=== PATIENT | female | born 1985 | race Caucasian/White ===

== ENCOUNTER 2020-01-24 10:20 | Inpatient (IN) | payer MEDICARE, OTHER ==
[2020-01-20 11:59] LABS: BASOPHILS # (AUTO) 0.1 (0.0-0.1); BASOPHILS % 1.4 % (0.0-1.0); EOSINOPHILS # (AUTO) 0.1 (0.0-0.4); EOSINOPHILS % 1.6 % (0.0-6.0); HEMATOCRIT 46.4 % (34.2-44.1); HEMOGLOBIN 14.6 g/dL (12.0-16.0); LYMPHOCYTES # (AUTO) 2.4 (1.0-3.2); LYMPHOCYTES % 48.5 % (18.0-39.1); MEAN CORPUSCULAR HEMOGLOBIN 28.6 pg (28-32); MEAN CORPUSCULAR HGB CONC 31.5 g/dL (31-35); MEAN CORPUSCULAR VOLUME 90.8 fL (81-99); MONOCYTES # (AUTO) 0.3 (0.2-0.8); MONOCYTES % 6.7 % (4.4-11.3); NEUTROPHILS % 41.6 % (38.7-80.0); PLATELET COUNT 186 x10e3/uL (140-360); RED BLOOD COUNT 5.11 x10e6/uL (3.6-5.1); RED CELL DISTRIBUTION WIDTH 14.1 % (11.7-14.4)
[2020-01-20 12:19] LABS: INR 1.12; PARTIAL THROMBOPLASTIN TIME 29.2 seconds (23.8-35.5)
[2020-01-20 12:22] LABS: ANION GAP 15.9 mmol/L (8-16); BLOOD UREA NITROGEN 8 mg/dL (7-26); BUN/CREATININE RATIO 11 (6-25); CALCIUM 8.9 mg/dL (8.4-10.2); CARBON DIOXIDE 24 mmol/L (22-29); CHLORIDE 109 mmol/L (98-107); CREATININE, SERUM 0.73 mg/dL (0.57-1.11); EST GLOMERULAR FILTRATION RATE > 60 ML/MIN (60-); GLUCOSE 139 mg/dL (74-118); POTASSIUM 4.9 mmol/L (3.5-5.1); SODIUM 144 mmol/L (136-145)
[~2020-01-24] VITALS: Ht 152.4 cm; Wt 43.5 kg
[~2020-01-24 10:20] MED LIST: CARBAMAZEP200 MG/10 PO; CARBAMAZEPINE200 MG PO; LORATADINE10 MG PO; METFORMIN HCL500 MG PO; POLYETHYLENE GL17 GM PO
[2020-01-24] MEDS ORDERED: CEFAZOLIN SOD 1 GM/NS 50ML 50 ML IV ONE (10:50)
[2020-01-24] MEDS ORDERED: IOPAMIDOL 300MG/ML 50ML INFUS..BTL IV ONE (11:47)
[2020-01-24] MEDS ORDERED: SEVOFLURANE INHAL SOLN 250 ML PEN BTL ONE (12:19)
[2020-01-24] MEDS ORDERED: NEOSTIGMINE 1 MG/ML 10ML VIAL ONE (12:19)
[2020-01-24] MEDS ORDERED: ROCURONIUM BROMIDE 10 MG/ML 5ML VIAL IV ONE (12:19)
[2020-01-24] MEDS ORDERED: DEXAMETHASONE SOD PHOS INJ 4 MG/ML VIAL ONE (12:19)
[2020-01-24] MEDS ORDERED: LIDOCAINE HCL 2% LOCAL INJ 5 ML SDV VIAL INJ ONE (12:19)
[2020-01-24] MEDS ORDERED: PROPOFOL IV EMULSION 10 MG/ML 20 ML VIAL ONE (12:19)
[2020-01-24] MEDS ORDERED: ONDANSETRON HCL INJ 2MG/ML 2ML 2 MG/ML VIAL ONE (12:19)
[2020-01-24] MEDS ORDERED: GLYCOPYRROLATE INJ 0.2 MG/ML VIAL ONE (12:19)
[2020-01-24] MEDS ORDERED: FENTANYL CITRATE/PF 100MCG/2 ML INJ ONE ×2 (12:48→16:17)
[2020-01-24] MEDS ORDERED: MIDAZOLAM HCL 2 MG/2 ML VIAL ONE (12:48)
[2020-01-24] MEDS ORDERED: DIPHENHYDRAMINE HCL 25 MG CAP PO PRN (15:45)
[2020-01-24] MEDS ORDERED: NALOXONE HCL INJ 0.4 MG/ML AMP IV PRN (15:45)
[2020-01-24] MEDS ORDERED: MORPHINE SULFATE 1 MG/ML 30ML PCA IV PRN (15:45)
[2020-01-24] MEDS ORDERED: D5.45%NS/KCL 20MEQ 1,000 ML IV SCH (15:45)
[2020-01-24] MEDS ORDERED: ONDANSETRON HCL INJ 2MG/ML 2ML 2 MG/ML VIAL IV PRN (15:45)
[2020-01-24] MEDS: SODIUM CHLORIDE 0.9% 250ML IRRIG IR SCH ×3 (15:45→23:28)
--- NOTE | 2020-01-24 16:15 | Diagnostic Imaging Report ---
TECHNIQUE: Frontal view of the chest. INDICATION: ^R/O PTX ^[id number] ^[id number] COMPARISON: None DISCUSSION: Limited evaluation due to portable technique. Lines and hardware: Overlying EKG leads are noted. Enteric tube is seen coiled multiple times within the region of the distal esophagus. Heart and mediastinum: Within normal limits. Lungs and pleura: Negative for large pneumothorax. Negative for focal consolidation or large effusion. Soft tissues and bones: Diffuse gaseous distention of the bowel loops is noted. IMPRESSION: 1. Negative for pneumothorax. 2. Enteric tube is seen coiling multiple times within the distal esophagus, recommend repositioning and re-imaging. 3. Diffuse gaseous distention of the small bowel loops which could relate obstruction or ileus. Question trace pneumoperitoneum at the left upper quadrant. This may be normal in the postoperative state. Correlate with patient history. Signed by: Bartolome Kenney MD on 01/24/2020 4:11 PM
--- OUTSIDE RECORDS SUMMARY | 2020-01-24 16:15 | XMS REPORT | Continuity of Care Document ---
Author Author [facility] t Organization [facility] Address [address] [place] [address] Phone Unavailable Care Team Providers Care Bargeman Name Role Phone Asked, Pcp No PCP Unavailable Doctor Unassigned, Name No Attphys Unavailable Karly ALVARADO, [facility] Attphys Payers Payer Name Policy Type Policy Number Effective Date Expiration Date S ource Problems Condition Name Condition Details Condition Category Status Onset Date Resolution Date Last Treatment Date Treating Clinician Comments Source Hydronephrosis with ureteropelvic junction (UPJ) obstr uction Hydronephrosis with ureteropelvic junction (UPJ) obstruction Disease Active 2016-03-21 00:00: 00 Greg Reeves Kidney stones Kidney stones Disease Active 2016-02-01 00:00:00 Greg Reeves Allergies, Adverse Reactions, Alerts Allergy Name Allergy Type Status Severity Reaction(s) Onset Date Inacti ve Date Treating Clinician Comments Source levofloxacin DA Active U 2019-04-21 00:00:00 [facility] bishop paiute FA Active U 2019-04-21 00:00:00 [facility] strawberry FA Active PR 2019-04-21 00:00:00 [facility] levofloxacin DA Active U 2017-07-30 00:00:00 [facility] bishop paiute DA Active U 2017-02-04 00:00:00 [facility] strawberry DA Active PR 2017-02-04 00:00:00 [facility] strawberry FA Active PR 2017-02-04 00:00:00 [facility] bishop paiute FA Active U 2017-02-04 00:00:00 [facility] Family History Family Member Diagnosis Comments Start Date Stop Date Source Natural mother Cancer [facility] Social History Social Habit Start Date Stop Date Quantity Comments Source Sex Assigned At Syd me[facility] [place] Alcohol intake 2016-03-25 00:00:00 2016-03-25 00:00:00 Current non-drinker of alcohol (finding) Greg Reeves Smoking Status Start Date Stop Date Source Never smoker Greg Funes t Medications Ordered Medication Name Filled Medication Name Start Date Stop Da te Current Medication? Ordering Clinician Indication Dosage Frequency Signature (SIG) Comments Components Source ciprofloxacin HCl (CILOXAN) 0.3 % ophthalmic solution 2016-03-21 11:31:46 Yes i-ii gtt bilat eyes qid x 10 days Greg Reeves metFORMIN (GLUCOPHAGE) 500 MG tablet 2016-03-21 11:31:46 Ye s 250mg QD Take 250 mg by mouth daily with breakfast. Greg Reeves esomeprazole (NexIUM) 40 MG capsule 2016-03-21 11:31:46 Yes 40mg QD Take 40 mg by mouth daily before breakfast. H phoebe Reeves LORAZepam (ATIVAN) 1 MG tablet 2016-03-21 11:31:46 Yes 1mg Q6H Take 1 mg by mouth every 6 (six) hours as needed for anxiety. Greg Reeves LANSOPRAZOLE (PREVACID ORAL) 2016-03-21 11:31:46 Yes None Entered Greg Reeves polyethylene glycol (MIRALAX) 17 gram packet 2008-07-05 00:00:00 Yes MIX 1 TABLESPOONFUL IN 8OZ OF FLUID AND GIVE VIA G-TUBE DAILY Greg Reeves ketoconazole (NIZORAL) 2 % shampoo 2008-06-30 00:00:00 Yes APPLY TO SCALP AND HAIR AND RINSE TWICE PER WEEK Greg Reeves carBAMazepine (TEGretol) 100 mg chewable tablet 2008-04-22 00:00 :00 Yes take 1 and 1/2 tablet orally three times daily Greg Reeves Procedures This patient has no known procedures. Plan of Care Planned Activity Planned Date Details Comments Source Future Scheduled Test 2019-11-06 00:00:00 INFLUENZA VACCINE [code = INFLUENZA VACCINE] Greg Reeves Future Scheduled Test 2005 00:00:00 Screening for luli gnant neoplasm of cervix (procedure) [code = 279734821] Greg Funes t Encounters Start Date/Time End Date/Time Encounter Type Admission Type Attendi [facility] Care Department Encounter ID Source 2019-10-15 00:00:00 2019-10-15 00:00:00 Orders Only D dorothyor Unassigned, [place] [id number] 2019-10-11 11:10:34 2019-10-11 11:40:34 [facility] [id number] Results Test Description Test Time Test Comments Results Result Comments Source - NM KIDNEY SCAN W/FLOW 2019-09-01 11:21:00 [place]: B St: REG -- Name: SHO CAMPO [facility] : 1985 Age/S: 33/F [address] Unit #: [id number] Loc: [place] [address] Phys: Undefined Provider Acct: [id number] Dis Date: Status: REG CLI PHONE #: [phone] Exam Date: 09/01/2019 1015 FAX #: [phone] Reason: HYDRONEPHROSIS EXAMS: CPT CODE: [id number] NM KIDNEY SCAN W/FLOW 94168 EXAMINATION: NM KIDNEY SCAN FLOW, FUNCTION HISTORY: Hydronephrosis TECHNIQUE: After the intravenous injection of 10.2 mCi of technetium 99m DTPA, scintigraphic imaging was acquired of the kidneys in the posterior projection. Imaging was acquired for 30 minutes and time/activity curves were generated for both kidneys. FINDINGS: Dynamic blood flow images demonstrate delayed perfusion of the right kidney. There is also decreased radiopharmaceutical uptake in the right kidney compared to the left. Estimated time to peak activity for the left and right kidney is 2.5 and 29.5 minutes, respectively (normal 3-5 minutes). Estimated differential uptake for the left and right kidney is 69 % and 31 %, respectively. No excretion of tracer by the right kidney is observed suggesting nonfunctioning kidney. IMPRESSION: Redemonstration of nonfunctioning right kidney. Left renal function appears to be within normal limits with a normal time to peak seen on this exam. Location: [facility] at 1121 Reported and signed by: Justice Griggs MD CC: Technologist: Sindhu Eli RT(N) Trnscrd Date/Time/By: 09/01/2019 (1121) : By: [email or web address] Orig Print D/T: S: 09/01/2019 (6690) PAGE 1 Signed Report - NM KIDNEY FLW [facility] 2019-07-26 11:15:00 FAX : Amos Harding MD [phone] [place]: B St: REG -- Name: SHO CAMPO [facility] : 1985 Age/S: 33/F [address] [facility] Unit #: [id number] Loc: AJ [place] [address] Phys: Amos Saavedra MD Acct: [id number] Dis Date: Status: REG CLI PHONE #: [phone] Exam Date: 07/26/2019 1053 FAX #: [phone] Reason: N13.30 EXAMS: CPT CODE: [id number] [facility] [address] HISTORY: N1.30. COMPARISON: March 29, 2019 and May 28, 2017. Location: [facility]. Renal Lasix scan: 5.7 mCi of technetium 99m MAG3 and 20 mCi of Lasix administered at 20 minutes. Right side: Suboptimal delayed upstroke on the time activity curves. Time to peak is markedly delayed at 33.5 minutes. Percentage uptake of 25%. The static images also demonstrate minimal uptake. Left side: Delayed upstroke appears worse from previous exams with time to peak at 25 minutes which is markedly delayed as well. Percentage perfusion of 75%. Following Lasix no excretion noted on the right side. Slight excretion is noted on the left side suggesting functioning kidney albeit suboptimal function. IMPRESSION: No excretion on the right suggesting nonfunctioning kidney. Decreasing uptake on the left side when compared to previous exams although excretion is noted suggesting renal function. Correlate with lab values. at 1115 Reported and signed by: Frank Morton M.D. CC: Amos Saavedra MD Technologist: NICHOLAS DANIELS Trnscrd Date/Time/By: 07/26/2019 (1115) : By: [email or web address] Orig Print D/T: S: 07/26/2019 (2252) PAGE 1 Signed Report BASIC METABOLIC PANEL 2019-04-28 09:24:00 Test Item SODIUM (test code = NA) 140 mmol/L 136-145 N POTASSIUM (test code = K) 4.2 mmol/L 3.5-5.1 N CHLORIDE (test code = CL) 110.0 mmol/L 98-107 H CARBON DIOXIDE (test code = CO2) 23.0 mmol/L 21-32 N ANION GAP (test code = GAP) 11.2 10-20 N GLUCOSE (test code = GLU) 100 mg/dL 74-106 N BLOOD UREA NITROGEN (test code = BUN) 11 mg/dL 7-18 N GLOMERULAR FILTRATION RATE (test code = GFR) > 60 mL/min >=60 Estimated GFR by using Modified MDRD formula.Chronic kidney disease is defined as either kidney damageor GFR <60 mL/min/1.73 m2 for >3 months. CREATININE (test code = CREAT) 0.60 mg/dL 0.55-1.02 N Note change in reference range due to change in reagent. BUN/CREATININE RATIO (test code = BUN/CREA) 18.3 10-20 N CALCIUM (test code = CA) 8.5 mg/dL 8.5-10.1 N HCG SERUM [id number] 09:21:00* Test Item Value Reference Range Interpretation Comments HCG SERUM QUAL (test code = HCGQL) NEGATIVE NEGATIVE This HCGQL test is NOT applicable for MALE patients.Check with nurse about probable order error.If Tumor Marker Test needed, nurse should order test "HCGTU"(Test #550.56776) [id number] 08:55:00* Test Item Value Reference Range Interpretation Comments GLUBED (test code = GLUBED) 95 mg/dL 74-106 N Performed by certified roll up machine operator at [facility] - NM KIDNEY SCAN [id number] 14:21:00 FAX: Amos Harding MD [phone] [place]: B St: REG Name: Jose HUERTASHO [facility] : [birth year] Age/S: 33/F [address] [facility] Unit #: [id number] Loc: [place] [address] Phys: Amos Saavedra MD Acct: [id number] Dis Date: Status: REG CLI PHONE #: [phone] Exam Date: 03/29/2019 1020 FAX #: [phone] Reason: N13.30 EXAMS: CPT CODE: [id number] NM KIDNEY SCAN W/FLOW 99456 EXAMINATION: NM KIDNEY SCAN FLOW, FUNCTION HISTORY: Hydronephrosis TECHNIQUE: After th e intravenous injection of 10.3 mCi of technetium 99m MAG3, scintigraphic imaging was acquired of the kidneys in the posterior projection. Imaging w as acquired for 30 minutes and time/activity curves were generated for bot h kidneys. FINDINGS: Dynamic blood flow images dem onstrate asymmetric renal parenchymal perfusion with decreased perfusion t o the left kidney relative to the right. There is also decreased tracer up take in the left kidney relative to the right. Estimated time to peak acti vity for the left and right kidney is 4.5 and 18.5 minutes, respectively ( normal 3-5 minutes). Estimated differential uptake for the left and right kidney is 72 % and 28 %, respectively. There is also delaye d excretion of tracer from the right kidney relative to the left. Estimate d T-1/2 for the left and right kidney is 6.5 and 28.1 minutes, respectivel y (normal 8-12 minutes). IMPRESSION: Significantly decreased tracer uptake and excretion by the right kidney compared to the left is unchanged from the prior exam suggesting minimal function of the right kidney. Left kidney function is within normal charles its. Location: [facility] at 1421 Reported and signed by: Jose Griggs MD CC: Amos Saavedra MD Technologist: Sindhu Eli RT(N) Trnscrd Da te/Time/By: 03/29/2019 (142) : By: [email or web address] Orig Print D/T: S: 03/29 (4174) PAGE 1 Signed Report - RETROPERITONEAL [id number] 09:45:00 Name: SHO CAMPO [facility] : 1985 Age/S: 33 / F [address] Unit #: [id number] Loc: AJ [place] [address] Phys: Edenilson Saavedra MD Acct: [id number] Di s Date: Status: REG CLI PHONE #: Exam Date: 03/29/2019924 FAX #: Reason: N13.30 EXAMS: CPT CODE: [id number] US RETROPERIT [place] COM [id number] REASON FOR EXAM: N13.30 EXAM ORDER DATE: 03/29/2019 9:02 AM Attending M.D.: Amos Saavedra MD PROCEDURE: - US RETROPERITONEAL COM Comparison: Renal ultrasound January 31, [address] of the abdomen and pelvis January 30, 2017. Renal function nuclear scan November 17, 2018 was also evaluated FINDINGS: Right kidney: parenchyma echogenicity: Normal echogenicity size: 13.2 x 6.3 x 3.2 cm. stones: none cysts/masses: Simple cortical cysts in the upper pole measuring 1.8 cm in size appears slightly smaller from the previous exam w here it measured up to 2.3 cm in size hydronephrosis: Severe, simila r to prior exam Left kidney: parenchyma echogenicity: Norm al echogenicity size: 12.3 x 6.2 x 4.1 cm. stones: none cysts /masses: none hydronephrosis: Mild pelviectasis is seen Uri nary Bladder: Suboptimal evaluation due to underdistention IMPRE SSION: Severe right-sided hydronephrosis. This is unchanged f rom the prior examination. Mild left-sided pelviectasis. Due to shadowing, the left renal pelvis was unable to be evaluated on the prior exam however this finding was present on the prior CT scan. Location: [facility] PAGE 1 Signed Report (CONTINUED) Name: SHO CAMPO [facility] : 1985 Age/S: 33 / F [address] [facility] Unit #: [id number] Loc: AJ [place] [address] Phys: Amos Saavedra MD Acct: [id number] Dis Date: Status: REG CLI PHONE #: [phone] Exam Date: 03/29/2019924 FAX #: [phone] Reason: N13.30 EXAMS: CPT CODE: [id number] US RETROPERITONEAL COM [id number] < Continued> at 0945 Reported and signed by: Justice Griggs MD CC: Amos Saavedra MD Technologist: OLU KNOXR),KELLY Trnscb Date/Time: 03/29/2019 (0945) [email or web address] Orig Print D/T: S: 03/29/2019 (6663) Probe: PAGE 2 Signed Report - NM KIDNEY FLW [facility] [id number] 11:38:00 FAX: Amos Harding MD [phone] [place]: B St: REG Name: Jose HUERTASHO [facility] : [birth year] Age/S: 32/F [address] [facility] Unit #: [id number] Loc: [place] [address] Phys: Amos Saavedra MD Acct: [id number] Dis Date: Status: REG CLI PHONE #: [phone] Exam Date: 11/17/2018 1010 FAX #: [phone] Reason: N13.30 EXAMS: CPT CODE: [id number] NM KIDNEY FLW [facility] [address] RENAL SCINTIGRAPHY DATE OF STUDY: 11/17/2018 8:51 AM INDICATION: Hydronephrosis PROCEDURE: The patient received 10.2 mCi of Tc-99m MAG3 intravenously. Posterior projection radionuclide angiogram, function, and excretion phases were imaged. Computer analysis in the region of the kid neys was performed and a time/activity curve was generated. Patient also r eceived 40 MG of Lasix after 20 minutes. COMPARED WITH: Nuclear edicine renal scan history 26/04/2017 FINDINGS: Left kidney: There is homogenous uptake in the left kidney. Time to peak measured 4.48 minutes. Percent uptake measured 73.2%. There is normal excre tion of tracer from the left kidney. Right kidney: There is significantly decreased tracer uptake compared to the left kidney. This fi nding is also present on the prior exam. Time to peak measured 18.5 minute s. Percent uptake measured 26.9%. Minimal excretion of tracer was se en following administration of Lasix. IMPRESSION: Significantly decreased tracer uptake in the right kidney compared to the left. This was also seen on the prior exam. Minimal tracer e xcretion following the administration of Lasix. These findings suggest m inimal function of the right kidney and is unchanged from the prior exam . Left kidney function is within normal limits. E lectronically Signed by Justice Griggs MD on 11/17/2018 at 1131 Reported and signed by: Justice Griggs MD PAGE 1 Signed Report (CONTINUED) FAX: Amos Harding MD [phone] [place]: St: REG Name: SHO CAMPO [facility] : 1985 Age/S: 32/F [address] [facility] Unit #: [id number] Loc: [place] [address] Phys: Amos Saavedra MD Acct: [id number] Dis Date: Status: REG CLI PHONE #: [phone] Exam Date: 11/17/2018 FAX #: [phone] Reason: N13.30 EXAMS: CPT CODE: [id number] NM KIDNEY FLW [facility] [address] <Continued> CC: Amos Saavedra MD Technologist: NICHOLAS DANIELS Trnscrd Date/Time/By: 11/17/2018 (2381) : By: [email or web address] Orig Print D/T: S: 11/17/2018 (2488) PAGE 2 Signed Report BASIC METABOLIC PANEL 2018-08-06 10:19:00* Test Item Value Reference Range Interpretation Comments SODIUM (test code = NA) 142 mmol/L 136-145 N POTASSIUM (test code = K) 4.1 mmol/L 3.5-5.1 N CHLORIDE (test code = CL) 108.0 mmol/L 98-107 H CARBON DIOXIDE (test code = CO2) 29.0 mmol/L 21-32 N ANION GAP (test code = GAP) 9.1 10-20 L GLUCOSE (test code = GLU) 96 mg/dL 74-106 N BLOOD UREA NITROGEN (test code = BUN) 10 mg/dL 7-18 N GLOMERULAR FILTRATION RATE (test code = GFR) > 60 mL/min >=60 Estimated GFR by using Modified MDRD formula.Chronic kidney disease is defined as either kidney damageor GFR <60 mL/min/1.73 m2 for >3 months. CREATININE (test code = CREAT) 0.60 mg/dL 0.55-1.02 N Note change in reference range due to change in reagent. BUN/CREATININE RATIO (test code = BUN/CREA) 16.7 10-20 N CALCIUM (test code = CA) 8.8 mg/dL 8.5-10.1 N HCG SERUM [id number] 10:19:00* Test Item Value Reference Range Interpretation Comments HCG SERUM QUAL (test code = HCGQL) NEGATIVE NEGATIVE This HCGQL test is NOT applicable for MALE patients.Check with nurse about probable order error.If Tumor Marker Test needed, nurse should order test "HCGTU"(Test #550.69002) BASIC METABOLIC [id number] 10:17:00* Test Item Value Reference Range Interpretation Comments SODIUM (test code = NA) 142 mmol/L 136-145 N POTASSIUM (test code = K) 4.1 mmol/L 3.5-5.1 N CHLORIDE (test code = CL) 108.0 mmol/L 98-107 H CARBON DIOXIDE (test code = CO2) 29.0 mmol/L 21-32 N ANION GAP (test code = GAP) 9.1 10-20 L GLUCOSE (test code = GLU) 96 mg/dL 74-106 N BLOOD UREA NITROGEN (test code = BUN) 10 mg/dL 7-18 N GLOMERULAR FILTRATION RATE (test code = GFR) > 60 mL/min >=60 Estimated GFR by using Modified MDRD formula.Chronic kidney disease is defined as either kidney damageor GFR <60 mL/min/1.73 m2 for >3 months. CREATININE (test code = CREAT) 0.60 mg/dL 0.55-1.02 N Note change in reference range due to change in reagent. BUN/CREATININE RATIO (test code = BUN/CREA) 16.7 10-20 N CALCIUM (test code = CA) 8.8 mg/dL 8.5-10.1 N HCG SERUM [id number] 10:17:00* Test Item Value Reference Range Interpretation Comments HCG SERUM QUAL (test code = HCGQL) NEGATIVE [id number] 09:50:00* Test Item Value Reference Range Interpretation Comments GLUBED (test code = GLUBED) 94 mg/dL 74-106 N Performed by certified roll up machine operator at [facility] [id number] 15:33:00 RUN DATE: 02/13/18 [place] - Lab PAGE 1 RUN TIME: 1533 Specimen Inqui ry RUN USER: INTERFACE PATIENT: SHO CAMPO ACCT #: [id number] LOC: [facility] U #: [id number] AGE/SX: 32/F ROOM: Leslie3038 RE02/10/18REG DR: Qasim Rivera MD : [birth year] BED: A DIS: STATUS: ADM IN TLOC: SPEC #: [id number] RECD: 02/13/18 STATUS: EMILIANO SANTO #: [id number] ALEKSANDER: 02/09/18-[address] [facility] [address]: Qasim Rivera MD ENTERED: 02/13/18 SP TYPE: URETER OTHR DR: Amos Saavedra MD ORDERED: GROSS COPIES TO: Amos Saavedra MD [address] [place] [address] Qasim Rivera MD [address] [place] [address] MARKERS: INTRADEPARTMENTAL CONSULT PROCEDURES: GROSS (02/13/18-5645) TISSUES: RIGHT URETER - PELVIC JUNCT ION CLINICAL HISTORY COLLECTION DATE: 02/09/2018 OBSTRUCTION COMMENT The tissue was received and submitted for microscopic evalua tion on 02/10/18. Intradepartmental consultation: RRB FINAL DIAGNOSIS Right ureteropelvic junction, pyeloplasty: URETEROPELVIC JUNCTION TIS HANANH WITH THICKENING OF THE MUSCULAR WALL AND MARKED CHRONIC INFLAMMATIO N OF THE MUCOSA AREAS OF FIBROSIS AND PATCHY CHRONIC INFLAMMATION PRESENT IN THE MUSCULAR WALL AND ASSOCIATED WITH SOME DISORGANIZATION OF THE S MOOTH MUSCLE WALL NEGATIVE FOR MALIGNANCY DMW/sm CONTINUED ON NEXT PAGE RUN DATE: 12/23 [facility] Lab PAGE 2 R UN TIME: 1533 Specimen Inquiry RUN USER: INTERFACE ----- -------SPEC #: [id number] PATIENT: SHO CAMPO #[id number] (Continued) MACROSCOPIC The specimen is receiv ed in formalin labeled with the patient's name and identified as "R ureteral p elvic junction". It conists of a mart-pink mucosal lined irregular fragment of tissue measuring 2.4 x 1.1 x 0.7 cm. The tissue is bisected and entirely sub mitted in a single cassette for microscopic evaluation. GROSS PERFORMED AT [facility] [address] [place] [address] [phone] MICROSCOPIC MICROSCOPIC PERFORMED AT [facility] All of the stains, including any controls performed, stain appropriately. [facility] [address] [place] [address] (p)[phone] PERFORMING SITE Diagnosis performed at: [facility], [address] [place] [address] Signed SIGNATURE ON FILE Susan Briggs 02/13/18 1533 END OF REPORT [id number] 15:15:00 RUN DATE: 02/11/18 [facility] PAGE 1 RUN TIME: 1515 Specimen Inqui ry RUN USER: INTERFACE PATIENT: SHO CAMPO ACCT #: [id number] LOC: [facility] U #: [id number] AGE/SX: 32/F ROOM: [facility]8 RE02/10/18REG DR: Qasim Rviera MD : [birth year] BED: A DIS: STATUS: ADM IN TLOC: SPEC #: [id number] RECD: 02/10/18 STATUS: EMILIANO SANTO #: [id number] ALEKSANDER: 02/09/[address] [facility] [address]: Amos Saavedra ENTERED: 02/10/18 SP TYPE: URETER OTHR DR: ORDERED: GROSS PROCEDURES: GROSS (02/11/18) TISSUES: RIGHT URETER - PELVIC JUNCTION CLINICAL HISTORY COLLECTION DATE: 02/09/2018 OBSTRUCTION FINAL DIAGNOSIS Right Ureteropelvi c junction, pyeloplasty: BLADDER TISSUE INCLUDING SMOOTH MUSCLE WALL WITH MARKED CHRONIC INFLAMMATION OF THE MUCOSA NEGATIVE FOR MALIGNAN CY DMW/sm D 94992 MACROSCOPIC The specimen is receive d in formalin labeled with the patient's name and identified as "R ureteral pe lvic junction". It consists of a mart-pink mucosal lined irregular fragment of tissue measuring 2.4 x 1.1 x 0.7 cm. The tissue is bisected and entirely sub mitted in a single cassette for microscopic evaluation. MICROSCOPI C MICROSCOPIC PERFORMED AT [facility] All of the stains, includ ing any controls performed, stain appropriately. [facility] [address] [place], [place] [address] [phone] CONTINUED ON NEXT PAGE RUN DATE: 02/11/18 [facility] PAGE 2 RUN TIME: 1515 Specimen Inquiry RUN USER: INTERFACE SPEC #: [id number] PATIENT: SHO CAMPO #[id number] (Continu ed) PERFORMING SITE Diagnosis performed at: [facility], [address] [address] Signed SIGNATURE ON FILE BriggsSusan 02/11/18 1515 END OF REPORT [id number] 15:15:00 RUN DATE: 02/13/18 [facility] PAGE 1 RUN TIME: 153 Specimen Inqui ry RUN USER: INTERFACE PATIENT: SHO CAMPO ACCT #: [id number] LOC: [facility] U #: [id number] AGE/SX: 32/F ROOM: [facility] RE02/10/18REG DR: Qasim Rivera MD : 83 BED: A DIS: STATUS: ADM IN TLOC: SPEC #: [id number] RECD: 02/10/18 STATUS: EMILIANO SANTO #: [id number] ALEKSANDER: 02/09/[address] [facility] [address]: Amos Saavedra ENTERED: 02/10/18 SP TYPE: URETER LIAN DR: ORDERED: GROSS PROCEDURES: GROSS (02/11/18140) TISSUES: RIGHT URETER - PELVIC JUNCTION ADDENDUM FINDINGS Addendum #1 Entered: 02/13/18 REFER TO REPORT [id number] CORRECTED REPORT SITE IS URETEROPELVIC JUNCTION, NOT BLADDER. Addendum Signed SIGNATURE ON FILE Susan Briggs 02/13/18 1535 CLINICAL HISTORY COLLECTION DATE: 02/09/2018 OBSTRUCTION FINAL DIAGNOSIS Right Ureteropelvic junction, pyeloplasty: BLADDER TISSUE INCLUDING S MOOTH MUSCLE WALL WITH MARKED CHRONIC INFLAMMATION OF THE MUCOSA NEGATIVE FOR MALIGNANCY DMW/sm D [address] MACROSCOPIC T he specimen is received in formalin labeled with the patient's name and identi fied as "R ureteral pelvic junction". It consists of a mart-pink mucosal lined irregular fragment of tissue measuring 2.4 x 1.1 x 0.7 cm. The tissue is bis ected and entirely submitted in a single cassette for microscopic evaluation. CONTINUED ON NEXT PAGE RUN DA TE: 02/13/18 [facility] PAG E 2 RUN TIME: 1535 Specimen Inquiry RUN USER: INTERFACE SPEC #: [id number] PATIENT: SHO CAMPO #[id number] (Continued) MICROSCOPIC MICROSCOPIC PER FORMED AT [facility] All of the stains, including any controls per formed, stain appropriately. [facility] [address] [facility], [place] [address] (P)[phone] PERFORMING SITE Diagnosis perf ormed at: [facility], [place] [address] [place] [address] Signed SIGNATURE ON ARIANA PAM ChesterSusan 02/11/18 1515 END OF REPORT
--- OUTSIDE RECORDS SUMMARY | 2020-01-24 16:15 | XMS REPORT | Clinical Summary ---
Author Author [facility] Organization [facility] Address Unknown Phone Unavailable Care Team Providers Care Access Services Representative Name Role Phone Asked, No Pcp PCP Unavailable Allergies No Known Active Allergies Medications End Date Status Medication Sig Dispensed Refills Start Date Active carBAMazepine (TEGretol) take 1 and 0 04/22 100 mg chewable tablet 1/2 tablet 9 orally three times daily Active ciprofloxacin HCl i-ii gtt 0 (CILOXAN) 0.3 % bilat eyes ophthalmic solution qid x 10 days Active polyethylene glycol MIX 1 0 (MIRALAX) 17 gram packet TABLESPOONFUL 9 IN 8OZ OF FLUID AND GIVE VIA G-TUBE DAILY Active ketoconazole (NIZORAL) 2 APPLY TO 0 06/30 % shampoo SCALP AND 9 HAIR AND RINSE TWICE PER WEEK Active metFORMIN (GLUCOPHAGE) Take 250 mg 0 500 MG tablet by mouth daily with breakfast. Active esomeprazole (NexIUM) 40 Take 40 mg by 0 MG capsule mouth daily before breakfast. Active LORAZepam (ATIVAN) 1 MG Take 1 mg by 0 tablet mouth every 6 (six) hours as needed for anxiety. Active LANSOPRAZOLE (PREVACID None Entered 0 ORAL) Active Problems Problem Noted Date Hydronephrosis with ureteropelvic junction (UPJ) obst ruction 03/21/2016 Kidney stones 02/01/2016 Surgical History Surgery Date Site/Laterality Comments GASTROSTOMY TUBE PLACEMENT Medical History Medical History Date Comments Diabetes mellitus (HCC) GERD (gastroesophageal reflux disease) Seizure (HCC) Cerebral palsy (HCC) Cortical blindness Mental retardation Family History Medical History Relation Name Comments Cancer Mother Relation Name Status Comments Mother (Age 58) Social History Date Tobacco Use Types Packs/Day Years Used Never Smoker Drinks/Week oz/Week Comments Alcohol Use No Sex Assigned at Date Recorded Not on file Last Filed Vital Signs Not on file Plan of Treatment Health Maintenance Due Date Last Done Comments CERVICAL CANCER SCREENING 2005 INFLUENZA VACCINE 11/06/2019 Results Not on fileafter 01/23/2019 Insurance Type Payer Benefit Subscriber ID Effective Phone Address Plan / Dates Group [facility] MEDICAID [facility] [id number] [employer] [place] Advance Directives For more information, please contact: [phone] 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
[2020-01-24] MEDS ORDERED: MORPHINE SULFATE 1 MG/ML 30ML PCA ONE (16:17)
[2020-01-24 16:42] LABS: BASOPHILS # (AUTO) 0.1 (0.0-0.1); BASOPHILS % 0.5 % (0.0-1.0); EOSINOPHILS % 0.2 % (0.0-6.0); HEMATOCRIT 44.7 % (34.2-44.1); LYMPHOCYTES # (AUTO) 2.3 (1.0-3.2); LYMPHOCYTES % 21.7 % (18.0-39.1); MEAN CORPUSCULAR HEMOGLOBIN 28.3 pg (28-32); MEAN CORPUSCULAR HGB CONC 31.3 g/dL (31-35); MEAN CORPUSCULAR VOLUME 90.5 fL (81-99); MONOCYTES # (AUTO) 0.4 (0.2-0.8); MONOCYTES % 3.9 % (4.4-11.3); NEUTROPHILS # (AUTO) 7.7 (2.1-6.9); NEUTROPHILS % 73.4 % (38.7-80.0); PLATELET COUNT 243 x10e3/uL (140-360); RED BLOOD COUNT 4.94 x10e6/uL (3.6-5.1); RED CELL DISTRIBUTION WIDTH 14.4 % (11.7-14.4)
[2020-01-24 16:57] LABS: ANION GAP 17.1 mmol/L (8-16); BLOOD UREA NITROGEN 7 mg/dL (7-26); BUN/CREATININE RATIO 9 (6-25); CALCIUM 8.3 mg/dL (8.4-10.2); CARBON DIOXIDE 22 mmol/L (22-29); CHLORIDE 106 mmol/L (98-107); CREATININE, SERUM 0.78 mg/dL (0.57-1.11); EST GLOMERULAR FILTRATION RATE > 60 ML/MIN (60-); GLUCOSE 237 mg/dL (74-118); POTASSIUM 4.1 mmol/L (3.5-5.1); SODIUM 141 mmol/L (136-145)
[2020-01-24 17:46] VITALS: BP 124/60
[2020-01-24 17:51] VITALS: BP 124/60
[2020-01-24] MEDS: SODIUM CHLORIDE 0.9% 1000ML 1,000 ML IV SCH (17:51)
--- NOTE | 2020-01-24 19:22 | NUR ---
Received pt in bed with caregiver at bedside. Pt awake, no s/sx of acute distress noted, VENDING MACHINE COLLECTOR and IVF infusing w/no difficulty. Mora to DD with no diff noted. Bed in low and locked position, bedside report completed. Will cont to monitor patient.
[2020-01-24 20:00] VITALS: BP 125/69
[2020-01-24] MEDS ORDERED: ACETAMINOPHEN 1000 MG/100 ML IV PRN ×2 (21:45→22:15)
[2020-01-24 22:03] VITALS: BP 125/69
--- NOTE | 2020-01-24 22:05 | NUR ---
Call placed to regarding temp and elevated HR, and pt being a diabetic. IV tylenol ordered, md states will take care of the HR. No orders for the diabetic bs of 213.
[2020-01-24] MEDS ORDERED: DEXTROSE 50% SYRINGE 50 ML IV PRN (22:15)
[2020-01-24] MEDS: CEFTRIAXONE SOD 1 GM/NS 50 ML 50 ML IV SCH (22:30)
--- NOTE | 2020-01-24 22:49 | History and Physical ---
PRIMARY CARE PHYSICIAN: Dr. Mcdowell. COMPUTER SYSTEMS DESIGN ANALYST: 1. Dr. Ghassan Saavedra. 2. Dr. Amos Saavedra. CHIEF COMPLAINT: Status post right radical nephrectomy for nonfunctional right kidney. HISTORY OF PRESENT ILLNESS: The patient is a 34-year-old female with nonfunctional right kidney and also with recurrent obstruction hydroureteronephrosis. The patient is status post right radical nephrectomy. The patient is postop. She is stable. She is comfortable at this time. Patient is NPO. The patient does have some low-grade fever. She is having pain, postop pain. Medication including antibiotics, IV fluid, and the patient-controlled FLORAL DESIGNER SALESPERSON. The patient is otherwise stable at this time. PAST MEDICAL HISTORY: Severe Learning Disability. Cerebral Palsy, Seizure, Right nonfunctional kidney associated with recurrent obstruction and infection, and recurrent urinary tract infection. Learning disability. Full ADL care. Diabetes type 2, hypertension, and allergic rhinitis. PAST SURGICAL HISTORY: Status post right radical nephrectomy and status post ureteral stent removal on the right. SOCIAL HISTORY: The patient does not smoke or use alcohol. No regular drugs. Live with her family with full ADL care. ALLERGIES: ALLERGY TO LEVAQUIN, ALEKNAGIK, AND STRAWBERRY. HOME MEDICATIONS: The patient is on loratadine, metformin, MiraLAX, and carbamazepine. REVIEW OF SYSTEMS: Postoperative pain. Hematuria. No headaches. No visual changes. No respiratory problem. No chest pain. Fever. Abdominal pain postop. No neurological deficit. PHYSICAL EXAMINATION: VITAL SIGNS: Temperature is 97, blood pressure 100/63, pulse rate 69, respirations 20. GENERAL: The patient is otherwise not in any distress. HEENT: Normocephalic and atraumatic. She is anicteric. NECK: Supple grossly. PULMONARY: Diminished breath sounds postop. CARDIOVASCULAR: Tachycardia episodically. ABDOMEN: Soft, status post right radical nephrectomy. Mora catheter in place. EXTREMITIES: No cyanosis or edema. Contractures. NEUROLOGIC: No gross new focal deficit. LABORATORY DATA: WBC is 10.5, hemoglobin 14, hematocrit 44.7, and platelets 243. Chemistry; sodium 141, potassium 4.1, chloride 106, bicarb 22, BUN 7, creatinine 0.7, and glucose is 237. Serology; COVID-19 PCR negative. Coagulation otherwise unremarkable. IMPRESSION: 1. Status post right radical nephrectomy. 2. Nonfunctional right kidney with recurrent hydronephrosis with status post stent placement and removal. 3. Hypertension. 4. Diabetes type 2. 5. Dyslipidemia. 5. Full ADL care, Extremity Contracture. PLAN: Continue with postoperative care. The patient-controlled FLORAL DESIGNER SALESPERSON for pain. Insulin sliding scale coverage. The patient remained n.p.o. Antiemetic. Antibiotics. IV fluids. Tylenol as needed. Zofran p.r.n. Home medication resumed when the patient able to take on oral medication. MD ARIADNA Spicer/LELA /[id number] MTDD
[2020-01-25] VITALS (8 sets, daily range): BP systolic 99–119; BP diastolic 55–80
--- NOTE | 2020-01-25 00:14 | Operative Report ---
DATE OF PROCEDURE: 01/24/2020 SURGEON: Amos Saavedra MD SERVICE: Urology. PREOPERATIVE DIAGNOSES: 1. Right nonfunctional kidney. 2. Right hydronephrosis. 3. Right double-J stents. 4. History of urinary tract infection. 5. Microhematuria. POSTOPERATIVE DIAGNOSES: 1. Right nonfunctional kidney. 2. Right hydronephrosis. 3. Right double-J stents. 4. History of urinary tract infection. 5. Microhematuria. OPERATIONS PERFORMED: 1. Cystoscopy and left retrograde pyelograms under fluoroscopic control. This is done with separate instruments, not related to the contralateral side. 2. Removal of double-J stent from the right side. 3. Right retrograde pyelograms under fluoroscopic control. 4. Placement of open-ended catheter into the kidney on the right side. No obstruction was noticed at the ureteropelvic junction. 5. Interpretation of x-ray, radiologist not present. 6. Supervision of fluoroscopy, radiologist not present. 7. Right complicated nephrectomy. MAILROOM COORDINATOR: Ghassan Saavedra MD TYPE OF ANESTHESIA: General. CLINICAL INDICATION NOTE: This is a 34-year-old patient, which has cerebral palsy. The patient is nonverbal. The patient had in the past UPJ obstruction repair, appeared to be functioning well. However, the function of the kidney was deteriorated to the point that there was almost no function in the kidney. The patient did have a stent in place as well as several UTIs. She was brought for removal of the kidney for assessment of the lateral side. The procedure was discussed with her father and consent was obtained. DESCRIPTION OF PROCEDURE AND FINDING: After proper level of anesthesia was achieved in the cystoscopy room, cystoscopy was done. Urethra and bladder neck were unremarkable. Double-J stent was protruding the right ureteral orifice. No tumor or foreign body seen. Open-end was catheter inserted to the left side and retrograde pyelogram were done. No intrinsic blockage was noticed, though there was minimal dilation of the ureter and upper collecting system, however, it drained promptly. There was no obstruction. Following this, the right double-J stent was removed. The open-end catheter was inserted and retrograde pyelogram demonstrating dilated pelvis and no blockage was noticed. The open-end catheter was then reinserted and advanced to the kidney. A 20-English Mora catheter was inserted and the catheter was placed into the Mora. The patient was then transferred to open room, placed in the lateral flank position with the right flank up. This incision was then made along the 12th rib, the distal inch of the rib was excised. Of note, there was extensive adhesions due to the previous surgery and the peritoneum was actually attached to the incision. It was possible to enter the retroperitoneal space. The kidney was identified, appeared to be quite atrophic. The ureter was dissected freed. The open-end catheter was removed and a ureter was transected and marked with a silk stitch. Then, dissection of the kidney was carried out. The pedicle eventually was controlled separately. The artery was doubly ligated with #1 silk, same for the vein. No significant bleeding was noticed. Following this, a Sarkis 19 drain was placed through a separate stab incision and placed in the retroperitoneum. Of note, that the peritoneal cavity was opened and the bowel appeared to be quite dilated. No obstruction was noticed in the colon as well as small bowel with dilated. Attempts to place an NG tube anesthesia appeared to be not successful. Peritoneum was closed separately using a 2-0 chromic catgut. Following this, the wound was closed using #1 PDS interrupted [id number]. Following this, the wound was irrigated and the skin was approximated using skin suraj. The patient tolerated the procedure well. Estimated blood loss maybe 100 mL. The patient was transferred to the recovery room and additional attempts to place an NG tube was not successful. MD CRISTY Valladares/LELA /[id number]
[2020-01-25] MEDS: SODIUM CHLORIDE 0.9% 1000ML 1,000 ML IV SCH (01:08)
[2020-01-25] MEDS: INSULIN LISPRO 100 UNIT/1 ML 3ML VIAL SQ SCH ×4 (01:16→18:00)
[2020-01-25] MEDS: SODIUM CHLORIDE 0.9% 250ML IRRIG IR SCH ×6 (01:16→23:45)
[2020-01-25 05:23] LABS: BASOPHILS # (AUTO) 0.1 (0.0-0.1); BASOPHILS % 0.7 % (0.0-1.0); EOSINOPHILS % 0.1 % (0.0-6.0); HEMOGLOBIN 12.5 g/dL (12.0-16.0); LYMPHOCYTES # (AUTO) 1.4 (1.0-3.2); LYMPHOCYTES % 20.6 % (18.0-39.1); MEAN CORPUSCULAR HEMOGLOBIN 28.2 pg (28-32); MEAN CORPUSCULAR HGB CONC 31.3 g/dL (31-35); MEAN CORPUSCULAR VOLUME 90.1 fL (81-99); MONOCYTES # (AUTO) 0.5 (0.2-0.8); MONOCYTES % 7.3 % (4.4-11.3); NEUTROPHILS # (AUTO) 4.8 (2.1-6.9); NEUTROPHILS % 71.2 % (38.7-80.0); PLATELET COUNT 202 x10e3/uL (140-360); RED BLOOD COUNT 4.44 x10e6/uL (3.6-5.1); RED CELL DISTRIBUTION WIDTH 14.6 % (11.7-14.4)
[2020-01-25 05:43] LABS: ANION GAP 13.5 mmol/L (8-16); BLOOD UREA NITROGEN 10 mg/dL (7-26); BUN/CREATININE RATIO 13 (6-25); CALCIUM 7.5 mg/dL (8.4-10.2); CARBON DIOXIDE 21 mmol/L (22-29); CHLORIDE 112 mmol/L (98-107); CREATININE, SERUM 0.76 mg/dL (0.57-1.11); EST GLOMERULAR FILTRATION RATE > 60 ML/MIN (60-); POTASSIUM 3.5 mmol/L (3.5-5.1); SODIUM 143 mmol/L (136-145)
[2020-01-25 05:52] LABS: GLUCOSE 41 mg/dL (74-118)
--- NOTE | 2020-01-25 06:03 | NUR ---
Rounding on patient this am, patient appear to be more lethargic with resp noted between 8-10 breathes per min, IV with IVF and FURNITURE REPRODUCER morphine infiltrated. Pt caregiver at bedside. Morphine FURNITURE REPRODUCER discontinued, PIV restarted. Lab report patient blood sugar 46, blood sugar done at bedside with reading of 47, Med per MAR. Will notify md. IVF infusing to RH with no difficulty. Will cont to monitor
--- NOTE | 2020-01-25 06:25 | NUR ---
Spoke with MD regarding pt Blood sugar 47, new orders noted.
[2020-01-25] MEDS ORDERED: DEXTROSE 5%/0.9% SOD CHL 1,000 ML IV ONE (06:30)
[2020-01-25] MEDS ORDERED: MAGNESIUM SULFATE 2GM/50ML IV ONE (08:30)
[2020-01-25] MEDS: DEXTROSE 5%/0.9% SOD CHL 1,000 ML IV SCH ×2 (08:30→16:30)
[2020-01-25] MEDS ORDERED: MAGNESIUM SULFATE 2GM/50ML 50 ML IV ONE (08:45)
[2020-01-25] MEDS: PANTOPRAZOLE 40 MG 10ML VIAL IV SCH (09:59)
[2020-01-25] MEDS: MORPHINE SULFATE 2 MG/ML SYR 1ML IV PRN ×3 (09:59→21:00)
[2020-01-25] MEDS: CEFTRIAXONE SOD 1 GM/NS 50 ML 50 ML IV SCH ×2 (14:04→22:30)
--- NOTE | 2020-01-25 14:35 | NUR ---
Nutrition Screen Note RD Recommendation for Physician: -Recommend advancing diet when medically appropriate Plan of Care: RD following, monitoring for tolerance and adequacy Nutrition reason for involvement: Nutrition Risk Trigger Primary Diagnose(s): right nonfunctioning kidney, right hydronephrosis s/p nephrectomy PMH: Severe Learning Disability. Cerebral Palsy, Seizure, Right nonfunctional kidney associated with recurrent obstruction and infection, and recurrent urinary tract infection, Full ADL care. Diabetes type 2, hypertension, and allergic rhinitis. Ht: 60 in Wt:96 lb BMI:18.7 kg/m2 IBW:[address] Assessment: (01/25/20) Chart reviewed. Labs and meds reviewed. Pt is a 34 year old female admitted with right nonfunctioning kidney and right hydronephrosis s/p nephrectomy. Unable to obtain information from pt and no family members were present at bedside. Pt is currently NPO and there are no previous weights in chart. Will continue to monitor Current Diet: NPO Malnutrition Evaluation (01/25/20) Unable to fully assess at this time. Will re-evaluate at follow-up as appropriate. Diet Education Needs Assessment: Diet education not indicated. Nutrition Care Level: low Signed: Kiana Hunt, RD, LD
--- NOTE | 2020-01-25 19:15 | NUR ---
patient received awake, alert, lying quietly in bed. no signs of pain/discomfort noted. ivf continue to infuse without difficulty. dressing to right surgical site c,d,i. kristie drain x 1. garcia catheter draining clear yellow urine to bsd. pm assessment complete. mother noted at the bedside. mother instructed to call for assistance when needed.
[2020-01-25] MEDS: ONDANSETRON HCL INJ 2MG/ML 2ML 2 MG/ML VIAL IV PRN (21:00)
[2020-01-26] VITALS (9 sets, daily range): BP systolic 106–125; BP diastolic 65–91
[2020-01-26] MEDS: DEXTROSE 5%/0.9% SOD CHL 1,000 ML IV SCH ×3 (02:45→19:54)
[2020-01-26] MEDS: INSULIN LISPRO 100 UNIT/1 ML 3ML VIAL SQ SCH ×4 (06:00→16:43)
[2020-01-26 06:38] LABS: BASOPHILS % 0.8 % (0.0-1.0); EOSINOPHILS % 0.5 % (0.0-6.0); HEMATOCRIT 37.6 % (34.2-44.1); HEMOGLOBIN 12.3 g/dL (12.0-16.0); LYMPHOCYTES # (AUTO) 0.7 (1.0-3.2); LYMPHOCYTES % 18.3 % (18.0-39.1); MEAN CORPUSCULAR HEMOGLOBIN 29.4 pg (28-32); MEAN CORPUSCULAR HGB CONC 32.7 g/dL (31-35); MONOCYTES # (AUTO) 0.3 (0.2-0.8); MONOCYTES % 8.2 % (4.4-11.3); NEUTROPHILS # (AUTO) 2.7 (2.1-6.9); NEUTROPHILS % 71.9 % (38.7-80.0); PLATELET COUNT 149 x10e3/uL (140-360); RED BLOOD COUNT 4.18 x10e6/uL (3.6-5.1); RED CELL DISTRIBUTION WIDTH 14.6 % (11.7-14.4)
[2020-01-26 07:03] LABS: ANION GAP 11.5 mmol/L (8-16); BLOOD UREA NITROGEN 5 mg/dL (7-26); BUN/CREATININE RATIO 7 (6-25); CALCIUM 7.6 mg/dL (8.4-10.2); CARBON DIOXIDE 20 mmol/L (22-29); CHLORIDE 112 mmol/L (98-107); CREATININE, SERUM 0.72 mg/dL (0.57-1.11); EST GLOMERULAR FILTRATION RATE > 60 ML/MIN (60-); GLUCOSE 209 mg/dL (74-118); POTASSIUM 3.5 mmol/L (3.5-5.1); SODIUM 140 mmol/L (136-145)
[2020-01-26] MEDS: PANTOPRAZOLE 40 MG 10ML VIAL IV SCH (08:26)
[2020-01-26] MEDS ORDERED: POTASSIUM CHLORIDE 20MEQ/100ML 100 ML IV ONE (09:30)
[2020-01-26] MEDS ORDERED: SODIUM CHLORIDE 0.9% 250ML 250 ML ONE (12:27)
[2020-01-26] MEDS: CEFTRIAXONE SOD 1 GM/NS 50 ML 50 ML IV SCH (12:32)
[2020-01-26] MEDS: ONDANSETRON HCL INJ 2MG/ML 2ML 2 MG/ML VIAL IV PRN (15:03)
[2020-01-26] MEDS: MORPHINE SULFATE 2 MG/ML SYR 1ML IV PRN ×2 (15:04→19:26)
--- NOTE | 2020-01-26 19:03 | NUR ---
patient received awake, alert, lying quietly in bed. no signs of pain/discomfort noted. reposition for comfort, IV fluids continue without difficulty. rate decreased to 75cc/hr per dayshift RN, rate adjusted, dressing to right surgical site c,d,i. kristie drain x 1. garcia catheter in place, no hematuria noted, mother at bedside. mother instructed to call for assistance when needed. call light within reach
[2020-01-27] VITALS (9 sets, daily range): BP systolic 106–129; BP diastolic 75–88
[2020-01-27] MEDS: CEFTRIAXONE SOD 1 GM/NS 50 ML 50 ML IV SCH ×3 (00:40→23:10)
[2020-01-27] MEDS: INSULIN LISPRO 100 UNIT/1 ML 3ML VIAL SQ SCH ×4 (00:51→16:50)
[2020-01-27] MEDS: ONDANSETRON HCL INJ 2MG/ML 2ML 2 MG/ML VIAL IV PRN ×3 (00:55→19:07)
[2020-01-27] MEDS: MORPHINE SULFATE 2 MG/ML SYR 1ML IV PRN ×3 (00:55→19:06)
[2020-01-27] MEDS: DEXTROSE 5%/0.9% SOD CHL 1,000 ML IV SCH (04:12)
[2020-01-27 05:38] LABS: BASOPHILS % 0.8 % (0.0-1.0); EOSINOPHILS # (AUTO) 0.1 (0.0-0.4); EOSINOPHILS % 1.2 % (0.0-6.0); HEMATOCRIT 37.4 % (34.2-44.1); HEMOGLOBIN 11.9 g/dL (12.0-16.0); LYMPHOCYTES # (AUTO) 1.2 (1.0-3.2); LYMPHOCYTES % 24.3 % (18.0-39.1); MEAN CORPUSCULAR HEMOGLOBIN 28.7 pg (28-32); MEAN CORPUSCULAR HGB CONC 31.8 g/dL (31-35); MEAN CORPUSCULAR VOLUME 90.3 fL (81-99); MONOCYTES # (AUTO) 0.3 (0.2-0.8); NEUTROPHILS # (AUTO) 3.3 (2.1-6.9); NEUTROPHILS % 66.5 % (38.7-80.0); PLATELET COUNT 160 x10e3/uL (140-360); RED BLOOD COUNT 4.14 x10e6/uL (3.6-5.1); RED CELL DISTRIBUTION WIDTH 14.6 % (11.7-14.4)
[2020-01-27 05:54] LABS: ANION GAP 8.4 mmol/L (8-16); BLOOD UREA NITROGEN < 5 mg/dL (7-26); CALCIUM 7.5 mg/dL (8.4-10.2); CARBON DIOXIDE 24 mmol/L (22-29); CHLORIDE 115 mmol/L (98-107); CREATININE, SERUM 0.61 mg/dL (0.57-1.11); EST GLOMERULAR FILTRATION RATE > 60 ML/MIN (60-); GLUCOSE 110 mg/dL (74-118); POTASSIUM 3.4 mmol/L (3.5-5.1); SODIUM 144 mmol/L (136-145)
[2020-01-27 05:55] LABS: BUN/CREATININE RATIO 8 (6-25)
[2020-01-27] MEDS ORDERED: FUROSEMIDE INJ 10 MG/ML 2 ML VIAL IV ONE (06:00)
--- NOTE | 2020-01-27 06:00 | NUR ---
MD alonzo made aware over telephone that patient has increased rhonchi lung sounds, ordered CXR and one time dose of lasix, VSS, afebrile, orders carried out
--- NOTE | 2020-01-27 06:23 | NUR ---
diet modified, nectar thick liquids per alonzo
--- NOTE | 2020-01-27 08:27 | Diagnostic Imaging Report ---
TECHNIQUE: Frontal view of the chest. INDICATION: ^wheezing and rhonci ^[id number] ^0610 ^Y COMPARISON: 01/24/2020 DISCUSSION: Limited evaluation due to portable technique. Lines and hardware: None. Previously identified enteric tube has been removed. Heart and mediastinum: Cardiomegaly is noted. Lungs and pleura: Lungs are again hypoexpanded. There is large left pleural effusion with multifocal airspace opacities. Question hazy trace opacity at the right lung base. Soft tissues and bones: Stable diffuse gaseous distention of the bowel loops. IMPRESSION: 1. Moderate left pleural effusion with overlying opacities concerning for pneumonia. 2. Question a few faint opacities at the right lung base. 3. Diffuse gaseous distention of the bowel loops in the upper abdomen. Consider ileus versus obstruction. Signed by: Bartolome Kenney MD on 01/27/2020 8:24 AM
[2020-01-27] MEDS: PANTOPRAZOLE 40 MG 10ML VIAL IV SCH (08:52)
[2020-01-27] MEDS ORDERED: ACETAMINOPHEN/CODEINE 300MG - 30MG TAB PO PRN (09:15)
[2020-01-27] MEDS ORDERED: INFLUENZA VIRUS VAC SPLIT INJ 0.5 ML SYR IM ONE (10:45)
--- NOTE | 2020-01-27 11:58 | NUR ---
[facility] REQUESTING CLINICALS BE SENT PRIOR TO DISCHARGE TO COMMUNICATE NEEDS FOR PT. PLAN IS TO RETURN TO [facility] PER ELIANA SANCHEZ
--- NOTE | 2020-01-27 12:00 | NUR ---
garcia removed. DEMETRIO drain removed. IV re-started in left forearm with 22g cath in one try. patient tolerated well.
[2020-01-27] MEDS: DOCUSATE SODIUM 100 MG CAP PO SCH (16:50)
--- NOTE | 2020-01-27 22:30 | NUR ---
BEDSIDE SHIFT REPORT RECEIVED FROM JONATHAN.PT ALERT BUT NONVERBAL. EYES OPEN,SMILING. CAREGIVER AT BEDSIDE. HX CP. S/P RT NEPHRECTOMY.RESPIRATIONS ARE EVEN AND UNLABORED. PT ON ADA PUREED NECTAR THICK DIET.22 G LEFT FA SL INTACT WITH HEALTHY SITE. R FLANK INCISION DRY AND INTACT. NO SIGNS OF PAIN. CALL LIGHT IS WITHIN REACH. BED LOCKED AND IN LOW POSITION. BED ALARM ON.
[2020-01-28] VITALS (9 sets, daily range): BP systolic 117–138; BP diastolic 74–103
[2020-01-28] MEDS: MORPHINE SULFATE 2 MG/ML SYR 1ML IV PRN ×2 (04:52→09:14)
[2020-01-28] MEDS: ONDANSETRON HCL INJ 2MG/ML 2ML 2 MG/ML VIAL IV PRN (04:59)
[2020-01-28] MEDS: INSULIN LISPRO 100 UNIT/1 ML 3ML VIAL SQ SCH ×6 (06:00→21:40)
[2020-01-28 06:14] LABS: BASOPHILS % 0.9 % (0.0-1.0); EOSINOPHILS # (AUTO) 0.2 (0.0-0.4); EOSINOPHILS % 4.2 % (0.0-6.0); HEMATOCRIT 36.9 % (34.2-44.1); HEMOGLOBIN 11.7 g/dL (12.0-16.0); LYMPHOCYTES # (AUTO) 1.1 (1.0-3.2); LYMPHOCYTES % 23.8 % (18.0-39.1); MEAN CORPUSCULAR HEMOGLOBIN 28.7 pg (28-32); MEAN CORPUSCULAR HGB CONC 31.7 g/dL (31-35); MEAN CORPUSCULAR VOLUME 90.4 fL (81-99); MONOCYTES # (AUTO) 0.4 (0.2-0.8); MONOCYTES % 8.8 % (4.4-11.3); NEUTROPHILS # (AUTO) 2.8 (2.1-6.9); NEUTROPHILS % 62.1 % (38.7-80.0); PLATELET COUNT 191 x10e3/uL (140-360); RED BLOOD COUNT 4.08 x10e6/uL (3.6-5.1); RED CELL DISTRIBUTION WIDTH 14.7 % (11.7-14.4)
[2020-01-28 06:35] LABS: ANION GAP 10.7 mmol/L (8-16); BLOOD UREA NITROGEN 8 mg/dL (7-26); BUN/CREATININE RATIO 11 (6-25); CALCIUM 7.9 mg/dL (8.4-10.2); CARBON DIOXIDE 26 mmol/L (22-29); CHLORIDE 111 mmol/L (98-107); CREATININE, SERUM 0.71 mg/dL (0.57-1.11); EST GLOMERULAR FILTRATION RATE > 60 ML/MIN (60-); GLUCOSE 160 mg/dL (74-118); POTASSIUM 3.7 mmol/L (3.5-5.1); SODIUM 144 mmol/L (136-145)
[2020-01-28] MEDS: DOCUSATE SODIUM 100 MG CAP PO SCH ×2 (08:23→16:05)
[2020-01-28] MEDS: PANTOPRAZOLE 40 MG 10ML VIAL IV SCH (08:23)
[2020-01-28] MEDS: CEFTRIAXONE SOD 1 GM/NS 50 ML 50 ML IV SCH ×2 (08:23→22:40)
[2020-01-28] MEDS ORDERED: CARBAMAZEPINE PO SCH (09:15)
[2020-01-28] MEDS ORDERED: FUROSEMIDE INJ 10 MG/ML 2 ML VIAL IV ONE (09:45)
[2020-01-28] MEDS ORDERED: SODIUM CHLORIDE 0.9% 250ML 250 ML ONE (09:55)
[2020-01-28] MEDS: METRONIDAZOLE 500MG/NS 100ML 100 ML IV SCH ×2 (10:05→21:40)
[2020-01-28] MEDS: CARBAMAZEPINE 200 MG TAB PO SCH ×4 (11:16→21:40)
--- NOTE | 2020-01-28 11:35 | NUR ---
IMM letter delivered and explained to pt's shoe laster Brandy Zeus at bedside. She verbalized understanding. Copy given. Signed copy placed in chart.
[2020-01-28] MEDS: HYDROCODONE/APAP 5MG-325MG TAB PO PRN ×3 (13:55→23:16)
--- NOTE | 2020-01-28 19:25 | NUR ---
Report given to oncoming nurse of patient's status. Resting in bed. No s/s of acute distress noted. Side rails upx3, call light within reach, bed alarm on, caregiver at bedside.
[2020-01-29] VITALS (8 sets, daily range): BP systolic 112–129; BP diastolic 75–96
[2020-01-29] MEDS: HYDROCODONE/APAP 5MG-325MG TAB PO PRN ×4 (03:55→17:38)
[2020-01-29 06:40] LABS: ANION GAP 12.5 mmol/L (8-16); BLOOD UREA NITROGEN 11 mg/dL (7-26); BUN/CREATININE RATIO 17 (6-25); CALCIUM 7.8 mg/dL (8.4-10.2); CARBON DIOXIDE 26 mmol/L (22-29); CHLORIDE 107 mmol/L (98-107); CREATININE, SERUM 0.63 mg/dL (0.57-1.11); EST GLOMERULAR FILTRATION RATE > 60 ML/MIN (60-); GLUCOSE 113 mg/dL (74-118); POTASSIUM 3.5 mmol/L (3.5-5.1); SODIUM 142 mmol/L (136-145)
--- NOTE | 2020-01-29 06:50 | NUR ---
SBAR BEDSIDE REPORT RECEIVED FROM PM SHIFT RN. PATIENT WAS FOUND LYING IN BED IN NO ACUTE DISTRESS. CAREGIVER AT BEDSIDE. PATIENT IS ALERT,NONVERBAL, AND NOT ORIENTED X3. PATIENT HOB WAS ELEVATED 45 DEGREES. PATIENT WEARING A DRY BRIEF FOR INCONTINENCE. CAREGIVER HAS CALL LIGHT AND BELONGINGS. WILL CONTINUE TO MONITOR.
[2020-01-29] MEDS: INSULIN LISPRO 100 UNIT/1 ML 3ML VIAL SQ SCH ×4 (07:30→21:05)
--- NOTE | 2020-01-29 08:02 | Diagnostic Imaging Report ---
EXAMINATION: CHEST SINGLE (PORTABLE) INDICATION: f/u on prev cxr COMPARISON: Multiple prior chest x-rays including most recent on 01/27/2020. FINDINGS: TUBES and LINES: None. LUNGS: There has been interval improved aeration of the left lung. There is residual patchy airspace and interstitial opacities throughout both lungs. PLEURA: No pleural effusion or pneumothorax. HEART AND MEDIASTINUM: The cardiomediastinal silhouette is mildly enlarged. BONES AND SOFT TISSUES: Degenerative changes in the spine and shoulders. Soft tissues are unremarkable. UPPER ABDOMEN: Redemonstration of gaseous distention bowel loops in upper abdomen. IMPRESSION: 1. Interval improved aeration of the left lung. 2. Residual patchy airspace and interstitial opacities throughout both lungs which most likely represent multifocal pneumonia and probable superimposed pulmonary edema. 3. Redemonstration of gaseous distention of bowel loops in upper abdomen suspicious for ileus versus obstruction. Signed by: Jeimy Byrnes MD on 01/29/2020 7:59 AM
[2020-01-29] MEDS: CARBAMAZEPINE 200 MG TAB PO SCH ×3 (09:15→21:45)
[2020-01-29] MEDS: DOCUSATE SODIUM 100 MG CAP PO SCH ×2 (09:15→17:36)
[2020-01-29] MEDS: LORATADINE 10 MG TAB PO SCH (09:15)
[2020-01-29] MEDS: POLYETHYLENE GLYCOL 3350 17 GM PACK PO SCH (09:15)
[2020-01-29] MEDS: METRONIDAZOLE 500MG/NS 100ML 100 ML IV SCH ×2 (09:15→21:45)
[2020-01-29] MEDS: CEFTRIAXONE SOD 1 GM/NS 50 ML 50 ML IV SCH ×2 (10:30→22:46)
--- NOTE | 2020-01-29 18:45 | NUR ---
SBAR BEDSIDE REPORT GIVEN TO PM SHIFT RN. PATIENT IS STABLE. CAREGIVER IS AT BEDSIDE.
[2020-01-30] VITALS (8 sets, daily range): BP systolic 113–127; BP diastolic 73–94
[2020-01-30] MEDS: HYDROCODONE/APAP 5MG-325MG TAB PO PRN ×4 (00:58→17:18)
--- NOTE | 2020-01-30 07:00 | NUR ---
RECEIVED BEDSIDE SHIFT REPORT FROM OFF GOING NIGHT NURSE. PATIENT IN STABLE CONDITION, NO S/S OF DISTRESS NOTED. RESPIRATIONS, EVEN AND NONLABORED. IV SITE ASYMPTOMATIC AND PATENT, TRANSPARENT DRESSING C/D/I. CAREGIVER AT BEDSIDE. BED IN LOWEST POSITION AND LOCKED, SIDE RAILS X 2. CALL LIGHT WITHIN REACH.
[2020-01-30] MEDS: INSULIN LISPRO 100 UNIT/1 ML 3ML VIAL SQ SCH ×4 (07:30→20:55)
[2020-01-30] MEDS ORDERED: BISACODYL 10 MG SUPP PR ONE (07:45)
[2020-01-30] MEDS ORDERED: BISACODYL 10 MG SUPP PR PRN (07:45)
[2020-01-30] MEDS ORDERED: MAGNESIUM HYDROXIDE 30 ML UDC PO PRN (09:45)
[2020-01-30] MEDS: POLYETHYLENE GLYCOL 3350 17 GM PACK PO SCH (09:49)
[2020-01-30] MEDS: CEFTRIAXONE SOD 1 GM/NS 50 ML 50 ML IV SCH ×2 (09:49→23:15)
[2020-01-30] MEDS: METRONIDAZOLE 500MG/NS 100ML 100 ML IV SCH ×2 (09:49→22:15)
[2020-01-30] MEDS: CARBAMAZEPINE 200 MG TAB PO SCH ×3 (09:49→22:15)
[2020-01-30] MEDS: LORATADINE 10 MG TAB PO SCH (09:49)
[2020-01-30] MEDS: SENNA-S TABLET PO SCH ×2 (09:58→17:09)
--- NOTE | 2020-01-30 18:59 | NUR ---
COMPLETED BEDSIDE SHIFT REPORT AND ROUNDING WITH ONCOMING NIGHT NURSE. PATIENT IN STABLE CONDITION, NO S/S OF DISTRESS NOTED. RESPIRATIONS, EVEN AND NONLABORED. IV SITE ASYMPTOMATIC AND PATENT, TRANSPARENT DRESSING C/D/I. CAREGIVER AT BEDSIDE. BED IN LOWEST POSITION AND LOCKED, SIDE RAILS X 2. CALL LIGHT WITHIN REACH.
[2020-01-31] VITALS: BP 113/92
[2020-01-31] MEDS: HYDROCODONE/APAP 5MG-325MG TAB PO PRN ×2 (00:30→05:05)
[2020-01-31 04:00] VITALS: BP 110/76
[2020-01-31 05:44] LABS: ANION GAP 14.1 mmol/L (8-16); BLOOD UREA NITROGEN 9 mg/dL (7-26); BUN/CREATININE RATIO 15 (6-25); CALCIUM 8.1 mg/dL (8.4-10.2); CARBON DIOXIDE 24 mmol/L (22-29); CHLORIDE 105 mmol/L (98-107); CREATININE, SERUM 0.62 mg/dL (0.57-1.11); EST GLOMERULAR FILTRATION RATE > 60 ML/MIN (60-); GLUCOSE 110 mg/dL (74-118); POTASSIUM 4.1 mmol/L (3.5-5.1); SODIUM 139 mmol/L (136-145)
[2020-01-31 05:57] LABS: PHOSPHORUS 2.5 MG/DL (2.3-4.7)
--- NOTE | 2020-01-31 07:00 | NUR ---
ASSUMED CARE. PATIENT AWAKE AND ALERT. ACYANOTIC. RESTING IN BED. NO DISTRESS NOTED. CALL LIGHT IN REACH. SIDE RAILS UP X2. BED LOW AND LOCKED. MARINE WELDER PRESENT AT BEDSIDE.
[2020-01-31 08:29] VITALS: BP 110/77
[2020-01-31] MEDS: INSULIN LISPRO 100 UNIT/1 ML 3ML VIAL SQ SCH (08:30)
[2020-01-31 08:31] VITALS: BP 110/77
[2020-01-31] MEDS: SENNA-S TABLET PO SCH (08:45)
[2020-01-31] MEDS: LORATADINE 10 MG TAB PO SCH (08:45)
[2020-01-31] MEDS: CARBAMAZEPINE 200 MG TAB PO SCH (08:45)
[2020-01-31] MEDS: POLYETHYLENE GLYCOL 3350 17 GM PACK PO SCH (08:45)
[2020-01-31] MEDS: METRONIDAZOLE 500MG/NS 100ML 100 ML IV SCH (08:45)
[2020-01-31] MEDS ORDERED: ONDANSETRON HCL 4 MG ORAL DISINTEGRATING TAB PO PRN (09:30)
[2020-01-31] MEDS ORDERED: BISACODYL 10 MG SUPP PR ONE (09:40)
[2020-01-31] MEDS: CEFTRIAXONE SOD 1 GM/NS 50 ML 50 ML IV SCH (10:30)
--- NOTE | 2020-01-31 14:00 | Discharge Summary ---
CREATIVE RESOURCE MANAGER: Ghassan Saavedra MD FINAL DIAGNOSES: 1. Status post right radical nephrectomy. 2. Aspiration pneumonia. 3. Ileus. 4. Right nonfunctional kidney with right hydronephrosis. HOSPITAL COURSE: The patient is a 34-year-old female, bed-bound with cerebral palsy and history of seizure, under well control. The patient is status post right radical nephrectomy done and postoperatively the patient admitted for postoperative care. The patient has a chronic aspiration noticed on x-ray with high probability of aspiration pneumonia and treated for so. The patient also had ileus postop. The patient required IV fluids. She had a slow recovery with respect to initiation of diet. She also has chronic constipation as well. Although, slowly she is stable and progressing back to baseline. She was placed on Flagyl and Rocephin for the aspiration pneumonia. The patient is otherwise, stable overall. White cell count is normal. No fever. She is eating with assistance. Thickening of the fluid and ADA diet with pureed to mechanical soft. The patient tolerated well. She is stable. Over the weekend, the patient was unable to go back to the facility due to no one there to intake the patient. The patient is now continued to be stable day #3. She will go home back to home today. She will resume her home medication. Tylenol No. 3 as needed for pain and Zofran as needed for nausea. Colace and MiraLAX for which the patient already have at home. Dulcolax suppository as needed. For the aspiration pneumonia, I will go ahead and give the patient 5-day of clindamycin 300 mg 3 times a day. This will also prevent on the right stable area to get infected as well. There is no sign of infection at this time, however. The patient is stable. Discharged home. All instruction was given to caregiver. Follow up with Dr. Ghassan Saavedra as planned. Resume home medication. Prescription in chart. MD ARIADNA Spicer/LELA /[id number]
== END 2020-01-31 11:30 | disposition home or self-care (01) | DRG 659 ==
LOC: OR 10:20 → PACU V 15:42 → MED/SURG 16:51
PROVIDERS: ADMIT Internal Medicine; ATTEND Internal Medicine
PROC: 0TP98DZ Removal of Intraluminal Device from Ureter, Via Natural or Artificial Opening Endoscopic (ICD-10-PCS; 2020-01-24)
PROC: 0TT00ZZ Resection of Right Kidney, Open Approach (ICD-10-PCS; principal; 2020-01-24 12:30)
PROC: BT141ZZ Fluoroscopy of Kidneys, Ureters and Bladder using Low Osmolar Contrast (ICD-10-PCS; 2020-01-24 12:30)
DX: N28.9 Disorder of kidney and ureter, unspecified (principal); J69.0 Pneumonitis due to inhalation of food and vomit; K56.7 Ileus, unspecified; K21.9 Gastro-esophageal reflux disease without esophagitis; N13.30 Unspecified hydronephrosis; G80.9 Cerebral palsy, unspecified; R56.9 Unspecified convulsions; Z11.59 Encounter for screening for other viral diseases; E11.9 Type 2 diabetes mellitus without complications
CPT/HCPCS: 36415; 71045; 74420; 80048; 82948; 83735; 84100; 84702; 85025; 85610; 85730; 86850; 86900; 88307; 96360; 96372; 97139; 99251; C1758; J0690; J0696; J1100; J1940; J2001; J2250; J2270; J2405; J2710; J3010; J3475; J3480; J7030; J7042; J7050; J7799